=== PATIENT | female | born 1955 | race Caucasian/White ===

== ENCOUNTER 2018-01-05 10:40 | Day surgery (SDC) | payer BC, OTHER ==
[2018-01-05] MEDS: NS 1,000 ML IV (11:22)
[2018-01-05] MEDS ORDERED: PROPOFOL 200 MG/20 ML VIAL As Ordered ×3 (12:18→12:41)
== END 2018-01-05 13:33 | disposition home or self-care (01) ==
LOC: M OPP 10:40
DX: K52.9 Noninfective gastroenteritis and colitis, unspecified (principal); D12.5 Benign neoplasm of sigmoid colon; K63.89 Other specified diseases of intestine; Q43.8 Other specified congenital malformations of intestine; K64.8 Other hemorrhoids; K28.0 Acute gastrojejunal ulcer with hemorrhage; K85.90 Acute pancreatitis without necrosis or infection, unspecified; K31.89 Other diseases of stomach and duodenum; Z98.0 Intestinal bypass and anastomosis status; K21.9 Gastro-esophageal reflux disease without esophagitis; R06.83 Snoring; Z86.79 Personal history of other diseases of the circulatory system; Z86.39 Personal history of other endocrine, nutritional and metabolic disease; Z98.84 Bariatric surgery status; Z88.8 Allergy status to other drugs, medicaments and biological substances; Z79.899 Other long term (current) drug therapy
CPT/HCPCS: 45380

== ENCOUNTER → 2018-05-01 | Outpatient (CLI) | payer BC, OTHER ==
[2018-05-01 14:12] LABS: APPEARANCE, URINE CLEAR (CLEAR); BACTERIA, URINE AUTO NEGATIVE (NEGATIVE); BILIRUBIN, URINE AUTO NEGATIVE (NEGATIVE); BLOOD, URINE BLOOD NEGATIVE (NEGATIVE); COLOR, URINE YELLOW (YELLOW); GLUCOSE, URINE (UA) AUTO NEGATIVE (NEGATIVE); KETONE, URINE AUTO NEGATIVE (NEGATIVE); LEUKOCYTE ESTERASE, URINE AUTO NEGATIVE (NEGATIVE); MUCUS, URINE SMALL (NEGATIVE); NITRITE, URINE AUTO NEGATIVE (NEGATIVE); PROTEIN, URINE AUTO NEGATIVE (NEGATIVE); RBC, URINE AUTO 2 /HPF (0-3); SPECIFIC GRAVITY URINE AUTO 1.019 (1.002-1.035); SQUAMOUS EPITHELIAL CELL UR AU 0 /HPF (0-6); UROBILINOGEN, URINE AUTO 0.2 mg/dL (0.0-2.0); WBC, URINE AUTO 1 /HPF (0-3)
[2018-05-01 17:24] LABS: ANION GAP 7 MEQ/L (8-16); BLOOD UREA NITROGEN 11 MG/DL (7-18); CALCIUM LEVEL 9.4 MG/DL (8.8-10.2); CARBON DIOXIDE LEVEL 30 MEQ/L (21-32); CHLORIDE LEVEL 107 MEQ/L (98-107); CREATININE FOR GFR 0.58 MG/DL (0.55-1.30); GLOMERULAR FILTRATION RATE > 60.0 (>45); GLUCOSE, FASTING 105 MG/DL (70-100); POTASSIUM SERUM 4.5 MEQ/L (3.5-5.1); SODIUM LEVEL 144 MEQ/L (136-145)
== END ==
LOC: M SMT 11:36
DX: R31.0 Gross hematuria (principal); R82.998 Other abnormal findings in urine
CPT/HCPCS: 80048

== ENCOUNTER → 2018-06-25 | Outpatient (CLI) | payer BC, OTHER ==
[2018-06-25 13:25] LABS: ANION GAP 7 MEQ/L (8-16); BLOOD UREA NITROGEN 12 MG/DL (7-18); CALCIUM LEVEL 9.2 MG/DL (8.8-10.2); CARBON DIOXIDE LEVEL 30 MEQ/L (21-32); CHLORIDE LEVEL 103 MEQ/L (98-107); CREATININE FOR GFR 0.65 MG/DL (0.55-1.30); GLOMERULAR FILTRATION RATE > 60.0 (>45); GLUCOSE, FASTING 100 MG/DL (70-100); POTASSIUM SERUM 4.1 MEQ/L (3.5-5.1); SODIUM LEVEL 140 MEQ/L (136-145)
[2018-06-25 13:26] LABS: HEMATOCRIT 37.4 % (36.0-47.0); HEMOGLOBIN 12.5 g/dl (12.0-15.5); MEAN CORPUSCULAR HEMOGLOBIN 29.8 pg (27.0-33.0); MEAN CORPUSCULAR HGB CONC 33.4 g/dl (32.0-36.5); MEAN CORPUSCULAR VOLUME 89.3 fl (80.0-96.0); PLATELET COUNT, AUTOMATED 351 10^3/uL (150-450); RED BLOOD COUNT 4.19 10^6/uL (4.00-5.40); RED CELL DISTRIBUTION WIDTH 13.2 % (11.5-14.5); WHITE BLOOD COUNT 5.4 10^3/uL (4.0-10.0)
[2018-06-25 13:38] LABS: INR 0.94; PROTHROMBIN TIME 12.6 SECONDS (12.1-14.4)
[2018-06-25 13:39] LABS: PARTIAL THROMBOPLASTIN TIME 29.9 SECONDS (25.4-37.6)
== END ==
LOC: M SMT 09:21
DX: N20.0 Calculus of kidney (principal); Z01.818 Encounter for other preprocedural examination; N39.0 Urinary tract infection, site not specified
CPT/HCPCS: 80048

== ENCOUNTER 2018-07-03 13:20 | Day surgery (SDC) | payer BC, OTHER ==
[~2018-07-03 13:20] MED LIST: LIDOCAINE 2% INJ 100 MG/5 ML SDV (FOR ANES.) As Ordered; PROPOFOL 200 MG/20 ML VIAL As Ordered
[2018-07-03] MEDS: NS 1,000 ML IV (14:05)
== END 2018-07-03 15:07 | disposition home or self-care (01) ==
LOC: M OPP 15:07
DX: K28.4 Chronic or unspecified gastrojejunal ulcer with hemorrhage (principal); Z98.84 Bariatric surgery status
CPT/HCPCS: 43235

== ENCOUNTER 2018-07-06 11:28 | Day surgery (SDC) | payer BC, OTHER ==
[~2018-07-06 11:28] MED LIST changes: +LIDOCAINE 1% MDV 20ML VIAL SQ; -LIDOCAINE 2% INJ 100 MG/5 ML SDV (FOR ANES.) As Ordered; -PROPOFOL 200 MG/20 ML VIAL As Ordered
[2018-07-06] MEDS: LR 1,000 ML IV (12:13)
[2018-07-06] MEDS ORDERED: LIDOCAINE 2% INJ 100 MG/5 ML SDV (FOR ANES.) As Ordered (12:41)
[2018-07-06] MEDS ORDERED: PROPOFOL 200 MG/20 ML VIAL As Ordered (12:41)
[2018-07-06] MEDS ORDERED: ONDANSETRON 4MG/2ML VIAL (J2405) As Ordered (12:41)
[2018-07-06] MEDS ORDERED: fentaNYL 100 MCG/2 ML INJECTION (J3010) As Ordered (12:42)
[2018-07-06] MEDS ORDERED: MIDAZOLAM INJ 2 MG/2 ML VIAL (J2250) As Ordered (12:42)
[2018-07-06] MEDS: CONRAY-60 60% 50ML VIAL (Q9961) As Ordered (13:25)
[2018-07-06] MEDS ORDERED: LR 1,000 ML IV (15:15)
[2018-07-06] MEDS ORDERED: PERCOCET 5MG/325MG TAB PO ×2 (15:15)
[2018-07-06] MEDS ORDERED: fentaNYL 100 MCG/2 ML INJECTION (J3010) IV (15:15)
[2018-07-06] MEDS: ONDANSETRON 4MG/2ML VIAL (J2405) IV (15:40)
[2018-07-06] MEDS: PERCOCET 5MG/325MG TAB PO ×2 (15:45→16:14)
[2018-07-06] MEDS: oxyBUTYnin 5 MG TAB PO (17:28)
== END 2018-07-06 18:10 | disposition home or self-care (01) ==
LOC: M SDC 11:28
DX: N20.0 Calculus of kidney (principal); E11.9 Type 2 diabetes mellitus without complications; Z79.899 Other long term (current) drug therapy; I10 Essential (primary) hypertension; E78.5 Hyperlipidemia, unspecified; Z98.84 Bariatric surgery status; K21.9 Gastro-esophageal reflux disease without esophagitis
CPT/HCPCS: 52356

== ENCOUNTER → 2018-08-07 | Outpatient (CLI) | payer BC, OTHER ==
[~2018-08-07] MED LIST changes: +BIOT10008 PO; +CALC1TAB49 PO; -LIDOCAINE 1% MDV 20ML VIAL SQ; +MULT1TAB10 PO; +OMEP40CA2 PO; +SUCR1TA PO; +VITA200016 PO; +VITA500T53 PO
--- NOTE | 2018-08-08 02:39 | REP ---
Clinical: Nephrolithiasis. Technique: Single supine view of the abdomen and pelvis. Findings: Left ureteral stent in seemingly satisfactory position. Evaluation for urinary tract calcifications is limited due to technique and overlying bowel gas. No obvious nephroureterolithiasis identified. Fecal stasis. No bowel obstruction. No organomegaly. Skeletal structures demonstrate age-related changes. Impression: Left ureteral stent. No obvious urinary tract calcifications identified. Electronically Signed by John Hernandez MD 08/08/2018 02:31 A
== END ==
LOC: M SMT 15:21
PROVIDERS: ATTEND Urology
DX: Z96.0 Presence of urogenital implants (principal)

== ENCOUNTER → 2019-01-28 | Outpatient (REF) | payer OTHER ==
[~2019-01-28] MED LIST changes: +VITA500T17 PO; -VITA500T53 PO
[2019-01-28 13:37] LABS: APPEARANCE, URINE HAZY (CLEAR); BACTERIA, URINE AUTO 2+ (NEGATIVE); BILIRUBIN, URINE AUTO NEGATIVE (NEGATIVE); BLOOD, URINE BLOOD NEGATIVE (NEGATIVE); COLOR, URINE YELLOW (YELLOW); GLUCOSE, URINE (UA) AUTO NEGATIVE (NEGATIVE); KETONE, URINE AUTO NEGATIVE (NEGATIVE); LEUKOCYTE ESTERASE, URINE AUTO TRACE (NEGATIVE); MUCUS, URINE SMALL (NEGATIVE); NITRITE, URINE AUTO POSITIVE (NEGATIVE); PROTEIN, URINE AUTO NEGATIVE (NEGATIVE); RBC, URINE AUTO 0 /HPF (0-3); SPECIFIC GRAVITY URINE AUTO 1.014 (1.002-1.035); SQUAMOUS EPITHELIAL CELL UR AU 0 /HPF (0-6); UROBILINOGEN, URINE AUTO 0.2 mg/dL (0.0-2.0); WBC, URINE AUTO 9 /HPF (0-3)
== END ==
LOC: M SMT 12:50
PROVIDERS: ATTEND Urology
DX: R82.90 Unspecified abnormal findings in urine (principal)

== ENCOUNTER 2019-04-17 14:41 | Emergency (ER) | payer BC, OTHER ==
[~2019-04-17] VITALS: Ht 162.6 cm; Wt 84.1 kg
[2019-04-17] MEDS ORDERED: TAMS1CAP17 (14:57)
[2019-04-17] MEDS ORDERED: OXYC1TAB23 (14:57)
[2019-04-17] MEDS ORDERED: ONDA8TAB7 (14:57)
[2019-04-17] MEDS ORDERED: METOCLOPRAMIDE INJ 10MG/2ML VIAL (J2765) IV ONE (15:30)
[2019-04-17 15:43] LABS: BASO % 0.2 % (0.0-1.0); HEMATOCRIT 37.5 % (36.0-47.0); HEMOGLOBIN 12.5 g/dl (12.0-15.5); LYMPH # 0.7 10^3/uL (1.5-5.0); LYMPH % 5.3 % (24.0-44.0); MEAN CORPUSCULAR HGB CONC 33.3 g/dl (32.0-36.5); MONO # 0.3 10^3/uL (0.0-0.8); MONO % 2.6 % (0.0-5.0); NEUTROPHILS # 11.3 10^3/uL (1.5-8.5); NEUTROPHILS % 91.5 % (36.0-66.0); PLATELET COUNT, AUTOMATED 328 10^3/uL (150-450); RED BLOOD COUNT 4.31 10^6/uL (4.00-5.40); WHITE BLOOD COUNT 12.4 10^3/uL (4.0-10.0)
[2019-04-17 16:09] LABS: ALBUMIN 3.8 GM/DL (3.2-5.2); ALT/SGPT 32 U/L (12-78); BILIRUBIN,DIRECT 0.2 MG/DL (0.0-0.2); BILIRUBIN,TOTAL 0.4 MG/DL (0.2-1.0); BLOOD UREA NITROGEN 14 MG/DL (7-18); CALCIUM LEVEL 9.3 MG/DL (8.8-10.2); CARBON DIOXIDE LEVEL 28 MEQ/L (21-32); CHLORIDE LEVEL 104 MEQ/L (98-107); CREATININE FOR GFR 0.88 MG/DL (0.55-1.30); GLOMERULAR FILTRATION RATE > 60.0 (>45); GLUCOSE, FASTING 190 MG/DL (70-100); LIPASE 86 U/L (73-393); POTASSIUM SERUM 4.2 MEQ/L (3.5-5.1); SODIUM LEVEL 138 MEQ/L (136-145); TOTAL PROTEIN 7.3 GM/DL (6.4-8.2)
[2019-04-17] MEDS ORDERED: KETOROLAC 30 MG/ML VIAL (J1885) IV ONE (16:15)
--- NOTE | 2019-04-17 16:42 | REP ---
CT ABDOMEN AND PELVIS WITHOUT CONTRAST: CT abdomen and pelvis was performed without oral of IV contrast. Sagittal and coronal reconstruction images are performed. Comparison is made with prior study of 05/09/2018. The visualized lung bases demonstrate no infiltrate. There is a small hiatal hernia. There is evidence of prior gastric bypass surgery. No free air or free fluid is seen. There is evidence of prior cholecystectomy. The liver is grossly unremarkable. The spleen, adrenals and pancreas are grossly unremarkable. There is moderate right hydronephrosis with perinephric stranding. This is caused by a 5 mm calculus in the proximal right ureter. A few punctate calculi are seen in the left renal collecting system. There is a punctate calculus at the left ureteral pelvic junction causing mild left hydronephrosis. There is atherosclerotic calcification of the abdominal aorta without aneurysm. I see no adenopathy. There is no bowel wall thickening. I see no pelvic mass. Urinary bladder is minimally distended and grossly unremarkable. IMPRESSION: Moderate right hydronephrosis is caused by a 5 mm calculus in the proximal right ureter. Punctate calculus a the left ureteropelvic junction causes mild left hydronephrosis. Electronically Signed by Bro Melo MD 04/18/2019 04:59 P
[2019-04-17 18:14] VITALS: BP 128/67
== END 2019-04-17 18:26 | disposition home or self-care (01) ==
LOC: M ED 14:41
DX: N13.30 Unspecified hydronephrosis (principal); N20.0 Calculus of kidney; N23 Unspecified renal colic; E11.9 Type 2 diabetes mellitus without complications; K27.9 Peptic ulcer, site unspecified, unspecified as acute or chronic, without hemorrhage or perforation; K21.9 Gastro-esophageal reflux disease without esophagitis; Z98.84 Bariatric surgery status; Z88.8 Allergy status to other drugs, medicaments and biological substances; Z79.899 Other long term (current) drug therapy
CPT/HCPCS: 74176; 80048; 80076; 81001; 83690; 85025; 96374; 96375; 99284; J1885; J2765

== ENCOUNTER → 2019-04-25 | Outpatient (CLI) | payer BC, OTHER ==
[~2019-04-25] MED LIST changes: +ONDA8TAB7; +OXYC1TAB23; +TAMS1CAP17
--- NOTE | 2019-04-25 12:15 | REP ---
Supine abdomen single AP view: Comparison is 08/07/2018. The previous left ureteral stent has been removed. There are no calcifications projected over the kidneys, ureters or urinary bladder. There are no calcifications otherwise. The bowel gas pattern is normal. Skeletal structures are unremarkable. Impression: No calcifications are identified. The left ureteral stent has been removed. Electronically Signed by Bro Mendes MD 04/25/2019 12:07 P
[2019-04-25 14:04] LABS: APPEARANCE, URINE CLEAR (CLEAR); BACTERIA, URINE AUTO NEGATIVE (NEGATIVE); BILIRUBIN, URINE AUTO NEGATIVE (NEGATIVE); BLOOD, URINE BLOOD NEGATIVE (NEGATIVE); COLOR, URINE YELLOW (YELLOW); GLUCOSE, URINE (UA) AUTO 2+ mg/dL (NEGATIVE); KETONE, URINE AUTO NEGATIVE (NEGATIVE); LEUKOCYTE ESTERASE, URINE AUTO NEGATIVE (NEGATIVE); MUCUS, URINE SMALL (NEGATIVE); NITRITE, URINE AUTO NEGATIVE (NEGATIVE); PROTEIN, URINE AUTO NEGATIVE (NEGATIVE); RBC, URINE AUTO 0 /HPF (0-3); SPECIFIC GRAVITY URINE AUTO 1.004 (1.002-1.035); SQUAMOUS EPITHELIAL CELL UR AU 0 /HPF (0-6); UROBILINOGEN, URINE AUTO 0.2 mg/dL (0.0-2.0); WBC, URINE AUTO 0 /HPF (0-3)
== END ==
LOC: M SMT 10:13
PROVIDERS: ATTEND Nurse Practitioner Family
DX: N20.0 Calculus of kidney (principal)

== ENCOUNTER → 2019-05-09 | Outpatient (REF) | payer BC, OTHER ==
[2019-05-09 13:35] LABS: APPEARANCE, URINE HAZY (CLEAR); BACTERIA, URINE AUTO 1+ (NEGATIVE); BILIRUBIN, URINE AUTO NEGATIVE (NEGATIVE); BLOOD, URINE BLOOD NEGATIVE (NEGATIVE); COLOR, URINE YELLOW (YELLOW); GLUCOSE, URINE (UA) AUTO NEGATIVE (NEGATIVE); KETONE, URINE AUTO NEGATIVE (NEGATIVE); LEUKOCYTE ESTERASE, URINE AUTO 2+ (NEGATIVE); NITRITE, URINE AUTO NEGATIVE (NEGATIVE); PROTEIN, URINE AUTO NEGATIVE (NEGATIVE); RBC, URINE AUTO 2 /HPF (0-3); SPECIFIC GRAVITY URINE AUTO 1.005 (1.002-1.035); SQUAMOUS EPITHELIAL CELL UR AU 0 /HPF (0-6); UROBILINOGEN, URINE AUTO 0.2 mg/dL (0.0-2.0); WBC, URINE AUTO 33 /HPF (0-3)
== END ==
LOC: M SMT 13:09
PROVIDERS: ATTEND Nurse Practitioner Family
DX: N20.0 Calculus of kidney (principal)

== ENCOUNTER → 2019-07-25 | Outpatient (REF) | payer OTHER ==
[~2019-07-25] MED LIST changes: -OMEP40CA2 PO; +OMEP40CA97 PO
[2019-07-25 14:37] LABS: APPEARANCE, URINE CLEAR (CLEAR); BACTERIA, URINE AUTO NEGATIVE (NEGATIVE); BILIRUBIN, URINE AUTO NEGATIVE (NEGATIVE); BLOOD, URINE BLOOD 1+ (NEGATIVE); COLOR, URINE YELLOW (YELLOW); GLUCOSE, URINE (UA) AUTO NEGATIVE (NEGATIVE); KETONE, URINE AUTO NEGATIVE (NEGATIVE); LEUKOCYTE ESTERASE, URINE AUTO NEGATIVE (NEGATIVE); MUCUS, URINE SMALL (NEGATIVE); NITRITE, URINE AUTO NEGATIVE (NEGATIVE); PROTEIN, URINE AUTO NEGATIVE (NEGATIVE); RBC, URINE AUTO 3 /HPF (0-3); SPECIFIC GRAVITY URINE AUTO 1.011 (1.002-1.035); SQUAMOUS EPITHELIAL CELL UR AU 0 /HPF (0-6); UROBILINOGEN, URINE AUTO 0.2 mg/dL (0.0-2.0); WBC, URINE AUTO 1 /HPF (0-3)
== END ==
LOC: M SMT 14:11
PROVIDERS: ATTEND Nurse Practitioner Family
DX: R31.0 Gross hematuria (principal)

== ENCOUNTER 2020-01-12 01:05 | Inpatient (IN) | payer BC, OTHER ==
[~2020-01-12] VITALS: Ht 162.6 cm; Wt 81.8 kg
[~2020-01-12 01:05] MED LIST changes: +ONDA8TAB10; -ONDA8TAB7
[2020-01-12 02:11] LABS: BASO % 0.2 % (0.0-1.0); EOS % 0.1 % (0.0-3.0); HEMATOCRIT 34.9 % (36.0-47.0); HEMOGLOBIN 11.3 g/dl (12.0-15.5); LYMPH # 0.8 10^3/uL (1.5-5.0); LYMPH % 5.4 % (24.0-44.0); MEAN CORPUSCULAR HEMOGLOBIN 28.9 pg (27.0-33.0); MEAN CORPUSCULAR HGB CONC 32.4 g/dl (32.0-36.5); MEAN CORPUSCULAR VOLUME 89.3 fl (80.0-96.0); MONO # 0.9 10^3/uL (0.0-0.8); MONO % 5.7 % (0.0-5.0); NEUTROPHILS # 13.5 10^3/uL (1.5-8.5); NEUTROPHILS % 88.2 % (36.0-66.0); PLATELET COUNT, AUTOMATED 317 10^3/uL (150-450); RED BLOOD COUNT 3.91 10^6/uL (4.00-5.40); WHITE BLOOD COUNT 15.3 10^3/uL (4.0-10.0)
[2020-01-12 03:06] LABS: ALBUMIN 3.6 GM/DL (3.2-5.2); BILIRUBIN,DIRECT 0.2 MG/DL (0.0-0.2); BILIRUBIN,TOTAL 0.5 MG/DL (0.2-1.0)
[2020-01-12] MEDS ORDERED: MORPHINE 4 MG/ML 1ML VIAL/SYRINGE (J2270) IV ONE (03:15)
[2020-01-12] MEDS ORDERED: cefTRIAXone SOD 1 GM in D5W MINI-BAG PLUS 50 ML IV ONE (03:15)
[2020-01-12] MEDS ORDERED: NS 1,000 ML IV ONE (03:15)
--- NOTE | 2020-01-12 03:58 | REPVR ---
PROCEDURE INFORMATION: Exam: CT Abdomen and Pelvis without Contrast Exam date and time: 01/12/20 (3:23am) Age: 64 years old Clinical indication: Generalized abdominal pain. Colic. TECHNIQUE: Imaging protocol: Computed tomography of the abdomen and pelvis without contrast. Radiation optimization: All CT scans at this facility use at least one of these dose optimization techniques: automated exposure control; mA and/or kV adjustment per patient size (includes targeted exams where dose is matched to clinical indication); or iterative reconstruction. COMPARISON: CT ABDOMEN PELVIS of 04/17/19 FINDINGS: Liver: Normal. No solid mass. Gallbladder and bile ducts: Previous cholecystectomy. No ductal dilatation. Pancreas: Normal. No ductal dilatation. Spleen: Normal. No splenomegaly. Adrenals: Normal. No mass. Kidneys and ureters: Marked left hydronephrosis. Obstructing irregular stone (3 mm size) at or just below the left UP junction. The left kidney is enlarged and edematous, with perinephric inflammatory stranding. 1 or 2 small non-obstructing calyceal stones in each kidney. Stomach and bowel: Previous stomach surgery. No bowel obstruction. No mucosal thickening. Appendix: No evidence of appendicitis. Intraperitoneal space: Unremarkable. No free air. No significant fluid collection. Vasculature: Unremarkable. No abdominal aortic aneurysm. Lymph nodes: Unremarkable. No enlarged lymph nodes. Bladder: Unremarkable as visualized. Reproductive: Unremarkable as visualized. Bones/joints: Unremarkable. No acute fracture. Soft tissues: Unremarkable. IMPRESSION: Marked left hydronephrosis. Obstructing irregular stone (3 mm size) at or just below the left UP junction. 1 or 2 small non-obstructing calyceal stones in each kidney. Previous stomach surgery. Previous cholecystectomy. Electronically signed by: Kaila Del Angel On 01/12/2020 03:57:45 AM
[2020-01-12] MEDS ORDERED: METF500T13 PO (05:03)
[2020-01-12] MEDS ORDERED: BIOT10009 PO (05:03)
[2020-01-12] MEDS ORDERED: THERTAB18 PO (05:03)
[2020-01-12] MEDS ORDERED: VITAD1000T PO (05:03)
[2020-01-12] MEDS ORDERED: GLUCAGON INJ 1MG VIAL SC PRN (05:15)
[2020-01-12] MEDS ORDERED: DEXTROSE 50% 50 ML SYRINGE IV PRN (05:15)
[2020-01-12] MEDS ORDERED: GLUCOSE 4GM CHEW TABLET PO PRN (05:15)
[2020-01-12] MEDS: NS 1,000 ML IV SCH ×2 (05:15→13:03)
--- NOTE | 2020-01-12 05:28 | HPEPDOC ---
[facility] Medical History & Physical Date of Admission Jan 12, 2020 Date of Service: Jan 12, 2020 Attending Physician: SHAY HESS MD History and Physical CHIEF COMPLAINT: Flank pain HISTORY OF PRESENT ILLNESS: 64-year-old female with past medical history diabetes mellitus and recurrent nephrolithiasis presents with left flank pain. Pain started 2 days ago, radiating around to the left lower quadrant, no associated fevers or nausea. She has no other complaints, presents to the ER, his pain was worsening. In the ER. She is found to have an obstructing calculi in the ureter with moderate hydronephrosis and significant perinephric stranding. She denies any shortness of breath, chest pain, nausea, vomiting or diarrhea. She does report a strong foul smell with urination. 10 point review of system is negative except for above PAST MEDICAL HISTORY: 1. Diabetes mellitus. PAST SURGICAL HISTORY: 1. Gastric bypass. 2. Hysterectomy. SOCIAL HISTORY: Previous smoker. Social alcohol use. Denies drug use FAMILY HISTORY: Positive for heart disease ALLERGIES: Please see below. HOME MEDICATIONS: Please see below. PHYSICAL EXAMINATION: VITAL SIGNS: Please see below. GENERAL: No distress HEENT: Normocephalic, atraumatic, moist mucous membranes NECK: Supple CARDIOVASCULAR EXAMINATION: S1, S2, no murmurs RESPIRATORY EXAMINATION: Clear to auscultation, no wheezing ABDOMINAL EXAMINATION: Soft, mild left lower quadrant tenderness, nondistended, positive bowel sounds EXTREMITIES: Range of motion intact SKIN: No rash NEUROLOGICAL EXAMINATION: Alert and oriented 3, no focal deficits PSYCHIATRIC EXAMINATION: Calm and cooperative LABORATORY DATA: See below. IMAGING: CT abdomen and pelvis showing obstructing calculi in the ureter with hydronephrosis MICROBIOLOGY: Please see below. ASSESSMENT: 64-year-old female with past medical history of diabetes mellitus and recurrent nephrolithiasis is being admitted for ureteral calculi with hydronephrosis and pyelonephritis. PLAN: 1. Hydronephrosis/pyelonephritis. Secondary to obstructing calculi, nothing by mouth, IV fluids, ceftriaxone, ED consulted urology for possible intervention. 2. Diabetes mellitus. Sliding scale insulin coverage every 6 hours. DVT prophylaxis: SCDs GI prophylaxis: Home PPI Vital Signs Vital Signs Date Time Temp Pulse Resp B/P (MAP) Pulse Ox O2 Delivery O2 Flow Rate FiO2 01/12/20 03:39 18 97 Room Air 01/12/20 02:19 01/12/20 01:05 98.9 108 Laboratory Data Labs 24H Laboratory Tests 2 01/12/20 01:16: Urine Color YELLOW, Urine Appearance CLOUDYH, Urine pH 5.0, Urine Specific [place] 1.020, Urine Protein 1+H, Urine Glucose (UA) NEGATIVE, Urine Ketones NEGATIVE, Urine Blood 1+H, Urine Nitrite NEGATIVE, Urine Bilirubin NEGATIVE, Urine Urobilinogen 0.2, Urine Leukocyte Esterase 3+H, Urine WBC (Auto) TNTCH, Urine RBC (Auto) 14H, Urine Hyaline Casts (Auto) 0, Urine Bacteria (Auto) NEGATIVE, Urine Squamous Epithelial Cells 0, Urine Mucus (Auto) SMALL, Urine Sperm (Auto) 01/12/20 02:06: Immature Granulocyte % (Auto) 0.4, Neutrophils (%) (Auto) 88.2H, Lymphocytes (%) (Auto) 5.4L, Monocytes (%) (Auto) 5.7H, Eosinophils (%) (Auto) 0.1, Basophils (%) (Auto) 0.2, Neutrophils # (Auto) 13.5H, Lymphocytes # (Auto) 0.8L, Monocytes # (Auto) 0.9H, Eosinophils # (Auto) 0.0, Basophils # (Auto) 0.0, Nucleated Red Blood Cells % (auto) 0.0, Total Bilirubin 0.5, Direct Bilirubin 0.2, Aspartate Amino Transf (AST/SGOT) 14, Alanine Aminotransferase (ALT/SGPT) 33, Alkaline Phosphatase 102, Total Protein 7.0, Albumin 3.6, Albumin/Globulin Ratio 1.1L, Lipase 112 01/12/20 02:14: POC Glucose (Misc Panel) 165H, POC Sodium (Misc Panel) 138, POC Potassium (Misc Panel) 3.8, POC Chloride (Misc Panel) 100, POC Total CO2 (Misc Panel) 23.0, POC Blood Urea Nitrogen (Misc Panel 17, POC Ionized Calcium (Misc Panel) 4.5, POC Creatinine (Misc Panel) 0.8, POC Hematocrit (Misc Panel) 36.0L CBC/BMP Laboratory Tests 01/12/20 02:06 Microbiology Microbiology 01/12/20 Urine Culture, Received Pending Home Medications Scheduled Biotin (Biotin) 1,000 Mcg Tab.chew, 1,000 MCG PO DAILY Calcium Citrate/Vitamin D3 (Calcium Cit 200-Vit D3 250 Tab) 1 Tab Tab, 1 TAB PO DAILY Cholecalciferol (Vitamin D3) (Vitamin D3) 1,000 Unit Tablet, 1,000 UNITS PO DAILY Cyanocobalamin (Vitamin B-12) (Vitamin B-12) 500 Mcg Tab, 500 MCG PO DAILY Metformin HCl (Metformin HCl) 500 Mg Tablet, 500 MG PO DAILY Multivitamin with Folic Acid (Thera Tablet) 400 Mcg Tablet, 1 TAB PO DAILY Omeprazole (Omeprazole) 40 Mg Cap, 40 MG PO QPM Allergies Coded Allergies: aspirin (Verified Adverse Reaction, Unknown, PT HAD GASTRIC BYPASS, 04/17/19) A-FIB/CHADSVASC A-FIB History Current/History of A-Fib/PAF?: No SHAY HESS MD Jan 12, 2020 05:28
[2020-01-12] MEDS ORDERED: ACETAMINOPHEN TAB 650MG DOSE (2X325MG) PO PRN (05:30)
[2020-01-12] MEDS ORDERED: MORPHINE 2 MG/ML 1ML VIAL (J2270) IV PRN (05:30)
[2020-01-12 06:00] VITALS: BP 143/82
[2020-01-12] MEDS: HumaLOG INSULIN (NovoLOG) PER UNIT SC SCH ×4 (06:00→17:38)
[2020-01-12] MEDS ORDERED: propofoL 200 MG/20 ML VIAL As Ordered ONE (09:32)
[2020-01-12] MEDS ORDERED: MIDAZOLAM INJ 2MG/2ML VIAL (J2250 PER 1MG) As Ordered ONE (09:32)
[2020-01-12] MEDS ORDERED: fentaNYL 100 MCG/2 ML INJECTION (J3010) As Ordered ONE (09:32)
[2020-01-12] MEDS ORDERED: ONDANSETRON 4MG/2ML VIAL As Ordered ONE (09:32)
[2020-01-12] MEDS ORDERED: LIDOCAINE 2% 100MG/5ML SDV (FOR ANES.) As Ordered ONE (09:32)
[2020-01-12] MEDS ORDERED: ISOVUE-300 61% 50ML VIAL As Ordered ONE (09:47)
[2020-01-12] MEDS ORDERED: LIDOCAINE 2% 5ML JELLY UROJET As Ordered ONE (10:21)
--- NOTE | 2020-01-12 10:29 | SMCUROLCON ---
Urology Consultation General Date of Consultation 01/12/20 Reason For Consultation This patient is seen for Hydronephrosis, Pyelonephritis, Ureterolithiasis. History of Present Illness This is a 64 y/o F w/ PMH significant for DM2 and kidney stones, presenting to the ER this morning w/ acute onset L flank pain. CT A/P done in the ER was notable for a 4mm obstructing stone in the L proximal ureter w/ moderate to severe hydro, renal edema, and perinephric stranding. She denies fevers or chills. She denies n/v. She denies dysuria. Her UA is notable for TNTC WBCs and she has a leukocytosis of 15,000. Past Medical History Medical History see HPI Surgical Hstory cholecystectomy, L rotator cuff repair, gastric bypass, hysterectomy Medications Current Medications Current Medications Medications (Trade) Dose Ordered Sig/Db Route PRN Reason Start Time Stop Time Status Last Admin Dose Admin Acetaminophen (Tylenol Tab) 650 mg Q6HP PRN PO pain/fever 01/12/20 05:30 Ceftriaxone Sodium 1 gm/ Dextrose 50 ml @ 100 mls/hr Q24H IV 01/13/20 04:00 Dextrose (Dextrose 50%) 25 ml ASDIRECTED PRN IV SEE LABEL COMMENTS 01/12/20 05:15 Glucagon (Glucagon) 1 mg ASDIRECTED PRN SC SEE LABEL COMMENTS 01/12/20 05:15 Glucose (Glucose) 16 GM ASDIRECTED PRN PO SEE LABEL COMMENTS 01/12/20 05:15 Home Med (Med Rec Complete!) ASDIRECTED XX 01/12/20 05:15 01/12/20 05:25 DC Insulin Human Lispro (HumaLOG INSULIN) SEE PROTOCOL TABLE Q6H SC 01/12/20 06:00 Morphine Sulfate (Morphine Sulfate Inj) 2 mg Q4HP PRN IV pain 8-10 01/12/20 05:30 Omeprazole (PriLOSEC) 40 mg QPM PO 01/12/20 21:00 Sodium Chloride 1,000 ml @ 100 mls/hr Q10H IV 01/12/20 05:15 01/12/20 05:15 Allergies Allergies: Coded Allergies: aspirin (Verified Adverse Reaction, Unknown, PT HAD GASTRIC BYPASS, 04/17/19) Review of Systems General: Denies: Fatigue, Malaise Constitutional: Denies: Fever, Chills, Sweats, Weakness, Malaise Pulmonary: Denies: Dyspnea, Cough Cardiovascular: Denies Chest Pain, Denies Palpitations Gastrointestinal: Denies: Nausea, Vomiting, Abdominal Pain Genitourinary: Denies: Dysuria, Frequency, Incontinence, Hematuria Musculoskeletal: Reports: Back Pain (L flank) Physical Examination General Exam: Alert, No Acute Distress Chest Exam: Normal air movement Abdomen Exam: Soft; No: Tenderness Skin Exam: Nl turgor and temperature Neuro Exam: Normal Speech Psych Exam: Mental status NL, Mood NL Vital Signs/I&O Vital Signs Date Time Temp Pulse Resp B/P (MAP) Pulse Ox O2 Delivery O2 Flow Rate FiO2 01/12/20 06:00 98.3 107 18 143/82 (102) 100 Room Air I&O- Last 24 Hours up to 6 AM 01/12/20 05:59 Intake Total 1050 ml Balance 1050 ml Laboratory Data 24H Labs Laboratory Tests 2 01/12/20 01:16: Urine Color YELLOW, Urine Appearance CLOUDYH, Urine pH 5.0, Urine Specific [place] 1.020, Urine Protein 1+H, Urine Glucose (UA) NEGATIVE, Urine Ketones NEGATIVE, Urine Blood 1+H, Urine Nitrite NEGATIVE, Urine Bilirubin NEGATIVE, Urine Urobilinogen 0.2, Urine Leukocyte Esterase 3+H, Urine WBC (Auto) TNTCH, Urine RBC (Auto) 14H, Urine Hyaline Casts (Auto) 0, Urine Bacteria (Auto) NEGATIVE, Urine Squamous Epithelial Cells 0, Urine Mucus (Auto) SMALL, Urine Sperm (Auto) 01/12/20 02:06: Immature Granulocyte % (Auto) 0.4, Neutrophils (%) (Auto) 88.2H, Lymphocytes (%) (Auto) 5.4L, Monocytes (%) (Auto) 5.7H, Eosinophils (%) (Auto) 0.1, Basophils (%) (Auto) 0.2, Neutrophils # (Auto) 13.5H, Lymphocytes # (Auto) 0.8L, Monocytes # (Auto) 0.9H, Eosinophils # (Auto) 0.0, Basophils # (Auto) 0.0, Nucleated Red Blood Cells % (auto) 0.0, Total Bilirubin 0.5, Direct Bilirubin 0.2, Aspartate Amino Transf (AST/SGOT) 14, Alanine Aminotransferase (ALT/SGPT) 33, Alkaline Phosphatase 102, Total Protein 7.0, Albumin 3.6, Albumin/Globulin Ratio 1.1L, Lipase 112 01/12/20 02:14: POC Glucose (Misc Panel) 165H, POC Sodium (Misc Panel) 138, POC Potassium (Misc Panel) 3.8, POC Chloride (Misc Panel) 100, POC Total CO2 (Misc Panel) 23.0, POC Blood Urea Nitrogen (Misc Panel 17, POC Ionized Calcium (Misc Panel) 4.5, POC Creatinine (Misc Panel) 0.8, POC Hematocrit (Misc Panel) 36.0L 01/12/20 05:29: Coronavirus (COVID-19)(PCR) NEGATIVE CBC/BMP Laboratory Tests 01/12/20 02:06 Microbiology Microbiology 01/12/20 Urine Culture, Received Pending Assessment This is a 64 y/o F presenting w/ a 4mm obstructing proximal L ureteral stone and likely pyelonephritis. I recommended that we take her to the OR this morning for cystoscopy and L ureteral stent placement. After a discussion of the risks and benefits, informed consent was signed. Plan - to OR now - NPO - 1g rocephin given in ED - f/u culture results - can have regular diet postop - patient to be monitored and treated for pyelonephritis by hospitalist service postop - will arrange f/u in my office in a week or so as patient will need to be brought back to the OR in a few wks to remove her stone once infection has resolved RAJENDRA CONTRERAS MD Jan 12, 2020 10:29
--- NOTE | 2020-01-12 11:06 | ROOPDOC ---
[facility] Report Of Operation Report of Operation DATE OF PROCEDURE: 01/12/20 PREPROCEDURE DIAGNOSIS: Obstructing left ureteral stone. POSTPROCEDURE DIAGNOSIS: Obstructing left ureteral stone. PROCEDURE: Cystoscopy, left ureteral stent placement, left retrograde pyelogram with intraoperative interpretation of images. SURGEON: Rajendra Contreras MD EXECUTOR OF ESTATE: None. ANESTHESIA: Monitored anesthesia care (MAC). OPERATIVE INDICATIONS: This is a 64-year-old female who presented to the emergency room with an obstructing 4mm proximal left ureteral stone and concern for left pyelonephritis. She is brought to the operating room for the above procedure. DESCRIPTION OF PROCEDURE: The patient was brought to the operating room and MAC anesthesia was administered. Broad spectrum antibiotics had already been infused in the Emergency Room. She was then placed in the dorsal lithotomy position and prepped and draped in the usual sterile fashion. A rigid cystoscope was then inserted in the urethral meatus and advanced into the bladder. A guidewire was advanced up the left collecting system. I then advanced a #5-Tamazight open-ended ureteral catheter over the wire into the left collecting system. The wire was removed and I then aspirated approximately 50mL of purulent urine from her left renal pelvis. I then shot a retrograde pyelogram and it was notable for moderate left hydronephrosis with no extravasation. I then advanced the wire back up the left collecting system and removed the ureteral catheter. I then utilized the wire to advance a #6-Tamazight x 22-32 cm JJ ureteral stent into the left collecting system. The wire was removed, and there were adequate curls of the stent in the left renal pelvis and in the bladder. I then placed an 18Fr Cody in the bladder and the balloon was filled with 10mL of sterile water. The catheter was connected to gravity drainage and this marked the conclusion of the procedure. The patient was taken out of the dorsal lithotomy position, awakened from anesthesia and transported to the recovery room in stable condition. Estimated blood loss: 5 mL. Complications: None. Specimens: Urine from left renal pelvis for culture. Plan: The patient will be treated for left pyelonephritis postop. I will ultima tely need to bring her back to the OR in a few weeks after her infection has cleared for a left ureteroscopy with laser lithotripsy to treat her stone. RAJENDRA CONTRERAS MD Jan 12, 2020 11:06
[2020-01-12] MEDS ORDERED: ONDANSETRON 4MG/2ML VIAL IV PRN (11:15)
[2020-01-12] MEDS ORDERED: oxyCODONE 5MG TAB PO PRN (11:15)
[2020-01-12] MEDS ORDERED: LR 1,000 ML IV SCH (11:15)
[2020-01-12] MEDS ORDERED: fentaNYL 100 MCG/2 ML INJECTION (J3010) IV PRN (11:15)
[2020-01-12 11:30] VITALS: BP 122/70
[2020-01-12 12:00] VITALS: BP 122/70
[2020-01-12 13:00] VITALS: BP 120/71
[2020-01-12] MEDS: VITAMIN D 1,000 INTERNATIONAL UNITS TABLET PO SCH (13:03)
[2020-01-12] MEDS: CYANOCOBALAMIN 500 MCG TAB PO SCH (13:03)
--- NOTE | 2020-01-12 13:55 | IPNPDOC ---
Text Note Date of Service The patient was seen on 01/12/20. NOTE Subjective: -Pain well controlled at this time, post stent placement Objective PHYSICAL EXAMINATION: VITAL SIGNS: Please see below. GENERAL: No distress HEENT: NCAT, EOMI, PERRLA NECK: Supple CARDIOVASCULAR EXAMINATION: RRR, S1, S2, no murmurs RESPIRATORY EXAMINATION: Clear to auscultation, no wheezing ABDOMINAL EXAMINATION: Normoactive bowel sounds, mildly tender L side, no distention, rebound or guarding. EXTREMITIES: WWP, no LE edema, 5/5 Range of motion throughout SKIN: No rash NEUROLOGICAL EXAMINATION: Alert and oriented 3, no focal deficits PSYCHIATRIC EXAMINATION: AOx3 LABORATORY DATA: Reviewed. See below. WBC 15.3 IMAGING: CT abdomen and pelvis showing obstructing calculi in the ureter with hydronephrosis MICROBIOLOGY: Please see below. ASSESSMENT: 64-year-old W with NIDDM and recurrent nephrolithiasis admitted for obstructing left ureteral calculi with hydronephrosis and pyelonephritis now s/p ureteral stent placement. PLAN: 1.Pyelonephritis w/ hydronephrosis Secondary to obstructing calculi s/p stent placement -consistent carb diet postop -IV fluids -continue ceftriaxone, pending UCx -Dr. Golden was consulted by the ED, s/p ureteral stent placement this AM, with poole to be dc'd tomorrow, will f/u w/ urology as an outpatient 2. Diabetes mellitus. Hold home metformin, SSI, hypoglycemia protocol, FSBG ACHS DVT prophylaxis: SCDs GI prophylaxis: Home PPI VS,Fishbone, I+O VS, Fishbone, I+O Laboratory Tests 01/12/20 02:06 Vital Signs Date Time Temp Pulse Resp B/P (MAP) Pulse Ox O2 Delivery O2 Flow Rate FiO2 01/12/20 12:00 97.7 85 16 122/70 (87) 99 Room Air I&O- Last 24 Hours up to 6 AM 01/12/20 06:00 Intake Total 1050 ml Output Total 0 ml Balance 1050 ml CHAD CONNELL MD Jan 12, 2020 12:19
[2020-01-12 16:00] VITALS: BP 120/72
[2020-01-12] MEDS ORDERED: HumaLOG INSULIN (NovoLOG) PER UNIT SC SCH (21:00)
[2020-01-12] MEDS ORDERED: OMEPRAZOLE 20 MG CAP PO SCH (21:00)
[2020-01-12 22:00] VITALS: BP 120/72
[2020-01-13 02:00] VITALS: BP 119/72
[2020-01-13] MEDS ORDERED: cefTRIAXone SOD 1 GM in D5W MINI-BAG PLUS 50 ML IV SCH (04:00)
[2020-01-13] MEDS: NS 1,000 ML IV SCH ×2 (04:19→11:15)
[2020-01-13 06:00] VITALS: BP 120/74
--- NOTE | 2020-01-13 07:02 | REP ---
Clinical: Hydronephrosis. Stent placement. Technique: Two intraoperative fluoroscopic images obtained. Findings: Mild left-sided hydronephrosis is appreciated along with satisfactory left ureteral stent placement. Total fluoroscopic time 11 seconds. Impression: Satisfactory left ureteral stent placement. Electronically Signed by John Hernandez MD 01/13/2020 06:52 A
[2020-01-13] MEDS ORDERED: ACET1TAB55 PO (08:34)
[2020-01-13] MEDS ORDERED: OXYC1TAB23 PO (08:34)
[2020-01-13] MEDS ORDERED: CEPH500C PO (08:36)
[2020-01-13] MEDS: HumaLOG INSULIN (NovoLOG) PER UNIT SC SCH (08:41)
[2020-01-13] MEDS: VITAMIN D 1,000 INTERNATIONAL UNITS TABLET PO SCH (08:41)
[2020-01-13] MEDS: CYANOCOBALAMIN 500 MCG TAB PO SCH (08:41)
[2020-01-13] MEDS ORDERED: CEPHALEXIN 500 MG CAP PO SCH (09:00)
[2020-01-13 10:52] LABS: HEMATOCRIT 33.7 % (36.0-47.0); MEAN CORPUSCULAR HEMOGLOBIN 29.6 pg (27.0-33.0); MEAN CORPUSCULAR HGB CONC 32.6 g/dl (32.0-36.5); MEAN CORPUSCULAR VOLUME 90.6 fl (80.0-96.0); PLATELET COUNT, AUTOMATED 292 10^3/uL (150-450); RED BLOOD COUNT 3.72 10^6/uL (4.00-5.40); WHITE BLOOD COUNT 8.3 10^3/uL (4.0-10.0)
[2020-01-13 11:48] LABS: BLOOD UREA NITROGEN 8 MG/DL (7-18); CALCIUM LEVEL 8.6 MG/DL (8.8-10.2); CARBON DIOXIDE LEVEL 27 MEQ/L (21-32); CHLORIDE LEVEL 107 MEQ/L (98-107); CREATININE FOR GFR 0.72 MG/DL (0.55-1.30); GLOMERULAR FILTRATION RATE > 60.0 (>45); GLUCOSE, FASTING 202 MG/DL (70-100); POTASSIUM SERUM 3.7 MEQ/L (3.5-5.1); SODIUM LEVEL 142 MEQ/L (136-145)
--- NOTE | 2020-01-13 19:18 | DS.PDOC ---
Discharge Summary General Date of Admission Jan 12, 2020 at 05:05 Date of Discharge 01/13/2020 Attending Physician: CHAD CONNELL MD Discharge Summary PROCEDURES PERFORMED DURING STAY: Cystoscopy with stent placement 01/12/2020 ADMITTING DIAGNOSES: 1. Pyelonephritis and ureterolithiasis DISCHARGE DIAGNOSES: 1. . COMPLICATIONS/CHIEF COMPLAINT: Hydronephrosis, Pyelonephritis, Ureterolithiasis. HISTORY OF PRESENT ILLNESS: 64 y/o W w DM2 and history of kidney stones, who presented to the ED with acute onset L flank pain. HOSPITAL COURSE: Work up revealed a leukocytosis to 15 and UA c/w a UTI while CT A/P was notable for a 4mm obstructing stone in the L proximal ureter w/ moderate to severe hydro with perinephric stranding. She had cystoscopy on 01/12/2020 with stent placement, was started on ceftriaxone for pyelonephritis that was switched to keflex post op and her pain was well controlled on percocet PRN. She is now being discharged home to complete a 10d course of keflex with urology and PCP follow up. DISCHARGE MEDICATIONS: Please see below. ALLERGIES: Please see below. PHYSICAL EXAMINATION ON DISCHARGE: VITAL SIGNS: Please see below. GENERAL: No distress HEENT: NCAT, EOMI, PERRLA NECK: Supple CARDIOVASCULAR EXAMINATION: RRR, S1, S2, no murmurs RESPIRATORY EXAMINATION: Clear to auscultation, no wheezing ABDOMINAL EXAMINATION: Normoactive bowel sounds, non tender abdomen, mild L flank pain, no distention, rebound or guarding. EXTREMITIES: WWP, no LE edema, 5/5 Range of motion throughout SKIN: No rash NEUROLOGICAL EXAMINATION: Alert and oriented 3, no focal deficits PSYCHIATRIC EXAMINATION: AOx3 IMAGING: CT abdomen and pelvis showing obstructing calculi in the ureter with hydronephrosis PROGNOSIS: Good ACTIVITY: As tolerated DIET: Consistent carb DISCHARGE PLAN: home with antibiotic course for pyelonephritis with urology follow up DISPOSITION: 01 Home, Self-Care. DISCHARGE INSTRUCTIONS: 1. home with antibiotic course for pyelonephritis with urology and PCP follow up ITEMS TO FOLLOWUP ON ON OUTPATIENT: 1. Kidney stone 2. Pyelonephritis DISCHARGE CONDITION: Stable TIME SPENT ON DISCHARGE: 45 minutes. Vital Signs/I&Os Vital Signs Date Time Temp Pulse Resp B/P (MAP) Pulse Ox O2 Delivery O2 Flow Rate FiO2 01/13/20 06:00 98.6 88 18 120/74 (89) 92 Room Air I&O- Last 24 Hours up to 6 AM 01/13/20 06:00 Intake Total 1780 ml Output Total 3100 ml Balance -1320 ml Laboratory Data Labs 24H Laboratory Tests 2 01/12/20 20:56: Bedside Glucose (Misc Panel) 169H 01/13/20 05:57: Bedside Glucose (Misc Panel) 157H 01/13/20 08:58: Nucleated Red Blood Cells % (auto) 0.0, Anion Gap 8, Glomerular Filtration Rate > 60.0, Calcium Level 8.6L CBC/BMP Laboratory Tests 01/13/20 08:58 FSBS Laboratory Tests Test 01/12/20 20:56 01/13/20 05:57 Range/Units Bedside Glucose (Misc Panel) 169 157 80-115 MG/DL Microbiology Microbiology 01/12/20 Urine Culture, Received Pending 01/12/20 Urine Culture, Received Pending Discharge Medications Scheduled Biotin (Biotin) 1,000 Mcg Tab.chew, 1,000 MCG PO DAILY, (Reported) Calcium Citrate/Vitamin D3 (Calcium Cit 200-Vit D3 250 Tab) 1 Tab Tab, 1 TAB PO DAILY, (Reported) Cephalexin (Cephalexin) 500 Mg Capsule, 500 MG PO QID Cholecalciferol (Vitamin D3) (Vitamin D3) 1,000 Unit Tablet, 1,000 UNITS PO DAILY, (Reported) Cyanocobalamin (Vitamin B-12) (Vitamin B-12) 500 Mcg Tab, 500 MCG PO DAILY, (Reported) Metformin HCl (Metformin HCl) 500 Mg Tablet, 500 MG PO DAILY, (Reported) Multivitamin with Folic Acid (Thera Tablet) 400 Mcg Tablet, 1 TAB PO DAILY, (Reported) Omeprazole (Omeprazole) 40 Mg Cap, 40 MG PO QPM, (Reported) Scheduled PRN Acetaminophen (Acetaminophen) 325 Mg Tablet, 650 MG PO Q6HP PRN for pain/fever Oxycodone HCl/Acetaminophen (Oxycodone-Acetaminophen 5-325) 1 Each Tablet, 1 TAB PO TIDP PRN for pain Allergies Coded Allergies: aspirin (Verified Adverse Reaction, Unknown, PT HAD GASTRIC BYPASS, 04/17/19) CHAD CONNELL MD Jan 13, 2020 19:18
== END 2020-01-13 12:00 | disposition home or self-care (01) | DRG 465 ==
LOC: M ED 01:05 → M ED INP 05:05 → ENRESERV 05:13 → M MS5PR 06:04
PROVIDERS: ADMIT Internal Medicine; ATTEND Internal Medicine
PROC: 0T778DZ Dilation of Left Ureter with Intraluminal Device, Via Natural or Artificial Opening Endoscopic (ICD-10-PCS; principal; 2020-01-12 10:00)
DX: N13.2 Hydronephrosis with renal and ureteral calculous obstruction (principal); I10 Essential (primary) hypertension; E11.9 Type 2 diabetes mellitus without complications; D72.829 Elevated white blood cell count, unspecified; Z88.6 Allergy status to analgesic agent; Z79.899 Other long term (current) drug therapy; Z87.891 Personal history of nicotine dependence

== ENCOUNTER → 2020-02-06 | Outpatient (CLI) | payer BC, OTHER ==
[~2020-02-06] MED LIST changes: +ACET1TAB55 PO; +BIOT10009 PO; +CEPH500C PO; +D31000TA2 PO; +METF500T13 PO; +OXYC1TAB23 PO; +THERTAB19 PO
--- NOTE | 2020-02-06 11:39 | REPPI ---
REASON FOR EXAM: Preoperative evaluation. Patient has a history of renal calculi. COMPARISON: 06/25/2018 FINDINGS: The superior mediastinal structures are midline. The cardiac silhouette is unremarkable in size, shape, and position. The diaphragmatic surfaces of the lungs are regular, and the costophrenic angles are clear. The pulmonary santos are clear. The imaged osseous structures are intact. IMPRESSION: There is no acute cardiopulmonary disease. No significant change from the prior exam. Electronically Signed by Navi Arzola DO 02/06/2020 04:55 P
[2020-02-06 12:47] LABS: MEAN CORPUSCULAR HEMOGLOBIN 29.3 pg (27.0-33.0); MEAN CORPUSCULAR HGB CONC 32.4 g/dl (32.0-36.5); MEAN CORPUSCULAR VOLUME 90.5 fl (80.0-96.0); PLATELET COUNT, AUTOMATED 361 10^3/uL (150-450); RED BLOOD COUNT 4.09 10^6/uL (4.00-5.40); WHITE BLOOD COUNT 6.1 10^3/uL (4.0-10.0)
[2020-02-06 13:05] LABS: INR 0.99; PROTHROMBIN TIME 12.8 SECONDS (11.8-14.0)
[2020-02-06 13:06] LABS: PARTIAL THROMBOPLASTIN TIME 29.2 SECONDS (25.0-38.4)
[2020-02-06 13:42] LABS: BLOOD UREA NITROGEN 12 MG/DL (7-18); CALCIUM LEVEL 9.1 MG/DL (8.8-10.2); CARBON DIOXIDE LEVEL 29 MEQ/L (21-32); CHLORIDE LEVEL 106 MEQ/L (98-107); CREATININE FOR GFR 0.79 MG/DL (0.55-1.30); GLOMERULAR FILTRATION RATE > 60.0 (>45); GLUCOSE, FASTING 165 MG/DL (70-100); POTASSIUM SERUM 4.2 MEQ/L (3.5-5.1); SODIUM LEVEL 141 MEQ/L (136-145)
[2020-02-06 14:29] LABS: AMORPHOUS SEDIMENT SMALL (NEGATIVE); APPEARANCE, URINE HAZY (CLEAR); BACTERIA, URINE AUTO NEGATIVE (NEGATIVE); BILIRUBIN, URINE AUTO NEGATIVE (NEGATIVE); BLOOD, URINE BLOOD 2+ (NEGATIVE); COLOR, URINE YELLOW (YELLOW); GLUCOSE, URINE (UA) AUTO NEGATIVE (NEGATIVE); KETONE, URINE AUTO NEGATIVE (NEGATIVE); LEUKOCYTE ESTERASE, URINE AUTO 2+ (NEGATIVE); MUCUS, URINE SMALL (NEGATIVE); NITRITE, URINE AUTO NEGATIVE (NEGATIVE); PROTEIN, URINE AUTO NEGATIVE (NEGATIVE); RBC, URINE AUTO 8 /HPF (0-3); SPECIFIC GRAVITY URINE AUTO 1.011 (1.002-1.035); SQUAMOUS EPITHELIAL CELL UR AU 0 /HPF (0-6); WBC, URINE AUTO 13 /HPF (0-3)
== END ==
LOC: M PLALAB 08:50
PROVIDERS: ATTEND Nurse Practitioner Family
DX: Z01.818 Encounter for other preprocedural examination (principal); N20.0 Calculus of kidney

== ENCOUNTER → 2020-02-12 | Outpatient (CLI) | payer BC, OTHER | LOC: M LABSMTC 10:04 | PROVIDERS: ATTEND Anesthesiology | DX: Z01.818 Encounter for other preprocedural examination (principal); Z11.59 Encounter for screening for other viral diseases; Z20.828 Contact with and (suspected) exposure to other viral communicable diseases | CPT/HCPCS: C9803; U0003 ==

== ENCOUNTER 2020-02-17 09:42 | Day surgery (SDC) | payer BC, OTHER ==
[~2020-02-17] VITALS: Ht 162.6 cm; Wt 83.6 kg
[~2020-02-17 09:42] MED LIST changes: +ceFAZolin SOD 2 GM in IV 1 EA IV ONE
[2020-02-17] MEDS ORDERED: CONRAY-60 60% 50ML VIAL (Q9961) As Ordered ONE (10:59)
[2020-02-17] MEDS ORDERED: LIDOCAINE 2% 100MG/5ML SDV (FOR ANES.) As Ordered ONE (11:22)
[2020-02-17] MEDS ORDERED: dexameTHASONE 4 MG/ML 1ML VIAL (J1100 PER 1MG) As Ordered ONE (11:22)
[2020-02-17] MEDS ORDERED: fentaNYL 100 MCG/2 ML INJECTION (J3010) As Ordered ONE (11:22)
[2020-02-17] MEDS ORDERED: MIDAZOLAM INJ 2MG/2ML VIAL (J2250 PER 1MG) As Ordered ONE (11:22)
[2020-02-17] MEDS ORDERED: propofoL 200 MG/20 ML VIAL As Ordered ONE (11:22)
[2020-02-17] MEDS ORDERED: ONDANSETRON 4MG/2ML VIAL As Ordered ONE (11:25)
--- NOTE | 2020-02-17 12:13 | REP ---
Retrograde pyelogram: Two views. History: Cystoscopy, left. 17 seconds of fluoroscopy time is reported. Findings: A sequence of two last image hold fluoroscopically obtained spot radiographs of the abdomen document left ureteral cannulation, contrast injection, and double pigtail stent placement. Electronically Signed by James Agee MD 02/17/2020 12:04 P
[2020-02-17] MEDS ORDERED: fentaNYL 100 MCG/2 ML INJECTION (J3010) IV PRN (12:30)
[2020-02-17] MEDS ORDERED: PERCOCET 5MG/325MG TAB PO PRN (12:30)
[2020-02-17] MEDS ORDERED: ONDANSETRON 4MG/2ML VIAL IV PRN (12:30)
[2020-02-17] MEDS ORDERED: oxyCODONE 5MG TAB PO PRN (12:30)
[2020-02-17] MEDS ORDERED: LR 1,000 ML IV SCH (12:30)
[2020-02-17 12:54] VITALS: BP 129/68
[2020-03-16 14:44] LABS: CA Oxalate Dihy 20 % (.); Ca Ox Monohydrate 80 % (.); Size 4x3 mm (.)
--- NOTE | 2020-06-05 08:29 | RO ---
DATE OF OPERATION: 02/17/2020. PREOPERATIVE DIAGNOSIS: Left kidney stone. POSTOPERATIVE DIAGNOSIS: Left kidney stone. PROCEDURES: Cystoscopy, left ureteroscopy with laser lithotripsy and basket extraction of stone, left retrograde pyelogram with intraoperative interpretative images, left ureteral stent exchange. SURGEON: Finn Golden MD RUBBER GASKET INSPECTOR TRIMMER: None. ANESTHESIA: General. OPERATIVE INDICATIONS: This is a 64-year-old female who underwent left ureteral stent placement in December for an obstructing proximal left ureteral stone as well as signs of pyelonephritis. She was brought to the operating room on 02/17/2020 to remove her stone. DESCRIPTION OF PROCEDURE: The patient was brought to the operating room and general anesthesia was induced. Prophylactic antibiotics were infused. She was placed in the dorsal lithotomy position and prepped and draped in usual sterile fashion. A rigid cystoscope was inserted into the urethral meatus and advanced into the bladder. The previously placed left ureteral stent was seen. That stent was grasped and withdrawn until the distal end was protruding from the urethral meatus. A guidewire was then advanced up the stent into the left collecting system. The stent was removed, leaving the wire in place. At this point, a ureteral access sheath was advanced up the left collecting system. I went up the access sheath with a flexible ureteroscope and at the level of the ureteropelvic junction, the obstructing stone was seen. The stone was fragmented into smaller pieces using 272 micron laser fiber and then all the fragments were removed using a basket. Once that was done, the left kidney was examined and no additional stones were seen. A retrograde pyelogram was performed and was notable for mild to moderate left hydronephrosis with no extravasation. I then withdrew the ureteroscope along with the access sheath and no additional stones were seen. I then utilized the guidewire to advance a 7-Spanish x 22-32 cm JJ ureteral stent up the left collecting system. The wire was removed and there were adequate curls of the stent in the left renal pelvis and in the bladder. The bladder was emptied of all fluids. This marked the conclusion of the procedure. The patient was then taken out of the dorsal lithotomy position, awakened from anesthesia, and transported to the recovery room in stable condition. ESTIMATED BLOOD LOSS: 5 mL. COMPLICATIONS: None. SPECIMEN: Kidney stones. PLAN: The patient will follow-up for stent removal in the urology clinic. VALERIA
== END 2020-02-17 13:15 | disposition home or self-care (01) ==
LOC: M SDC 09:42
PROVIDERS: ATTEND Urology
DX: N20.0 Calculus of kidney (principal); I10 Essential (primary) hypertension; K21.9 Gastro-esophageal reflux disease without esophagitis; E11.9 Type 2 diabetes mellitus without complications; Z98.84 Bariatric surgery status; Z79.899 Other long term (current) drug therapy; Z79.84 Long term (current) use of oral hypoglycemic drugs
CPT/HCPCS: 52356; 74420; 82365; 88300; C1769; C1894; C2617; J0690; J1100; J2250; J2405; J3010; Q9961

== ENCOUNTER → 2021-03-23 | Outpatient (CLI) | payer MEDICARE, BC, OTHER ==
[~2021-03-23] MED LIST changes: +OMEP40CA4 PO; -OMEP40CA97 PO; -ceFAZolin SOD 2 GM in IV 1 EA IV ONE
--- NOTE | 2021-03-23 08:46 | REP ---
INDICATION: EPIGASTRIC PAIN COMPARISON: Abdominal CT dated 01/12/2020 TECHNIQUE: Real time louis scale ultrasound examination using curved array transducer. FINDINGS: Liver and pancreas are normal in contour, size, and echogenicity without focal hepatic or pancreatic lesions identified. Patient is status post cholecystectomy with mild compensatory biliary ductal dilatation. Common bile duct measures 11 mm diameter. Right kidney is normal in reniform shape without hydronephrosis and measures 11.2 x 5.8 x 5.5 cm. No ascites in the visualized right upper quadrant. IMPRESSION: Normal limited right upper quadrant ultrasound prior cholecystectomy. <Electronically signed by John Hernandez > 03/23/21 [id number]
== END ==
LOC: M RAD 07:55
PROVIDERS: ATTEND Family Medicine
DX: R10.816 Epigastric abdominal tenderness (principal)

== ENCOUNTER → 2021-05-26 | Outpatient (CLI) | payer MEDICARE, BC, OTHER ==
--- NOTE | 2021-05-27 08:28 | REP ---
INDICATION: SCR MAMMO. COMPARISON: Multiple prior screening examinations, the most recent, 03/20/2020 TECHNIQUE: Digital screening (2D) mammography was performed bilaterally in the CC and MLO projections. Additionally, breast tomosynthesis (3D mammography) was performed bilaterally in the CC and MLO projections. FINDINGS: By history, the patient has no complaints of a palpable breast abnormality or other significant breast complaints. The [place]para volumetric breast density pattern is b, there are scattered areas of fibroglandular density. There is a suspicious appearing lymph node in the right axilla. This may be unchanged but was incompletely imaged on the prior exam. In the middle 3rd of the right breast, above and lateral to the nipple in the upper outer quadrant there is an area of architectural distortion. The left breast is unchanged.. IMPRESSION: BIRADS/ACR : Category 0: Incomplete, need additional imaging evaluation. This patient's Tyrer-Cuzick lifetime breast cancer risk assessment score is 10.9%. This mammogram was interpreted with the aid of an FDA-approved computer-aided detection system. The patient states she had a clinical breast exam in April 2021. The patient letter being requested is M0. RECOMMENDATION: Focal compression 3D of the right breast in the CC and MLO orientations. Targeted ultrasound of the upper-outer quadrant of the right breast and the right axilla. <Electronically signed by Flo Mccarthy > 05/27/21 [id number]
== END ==
LOC: M WHC 13:39
PROVIDERS: ATTEND Obstetrics & Gynecology
DX: Z12.31 Encounter for screening mammogram for malignant neoplasm of breast (principal); N63.11 Unspecified lump in the right breast, upper outer quadrant
CPT/HCPCS: 77063; 77067; G0463

== ENCOUNTER → 2021-06-22 | Outpatient (CLI) | payer MEDICARE, BC, OTHER ==
--- NOTE | 2021-06-22 10:00 | REP ---
INDICATION: RIGHT BREAST ADD VIEWS. COMPARISON: 05/26/2021, 03/20/2020, 03/07/2019, 01/02/2018. TECHNIQUE: Spot-compression tomographic sequences are obtained of the upper outer right breast. FINDINGS: The possible architectural distortion in the upper-outer quadrant of the right breast compresses out to an unchanged appearance compared to prior studies dating back to 01/02/2018. There is a stable sebaceous cyst in the right axilla, unchanged since 2018. IMPRESSION: BIRADS/ACR category 2, benign. No persistent architectural distortion in the right breast. Stable sebaceous cyst in the right axilla. This mammogram was interpreted with the aid of an FDA-approved computer-aided detection system. The patient letter being requested is M 1. RECOMMENDATION: Repeat screening mammography recommended 1 year (for women over 40). <Electronically signed by Bro Melo > 06/22/21 [id number]
== END ==
LOC: M WHC 08:50
PROVIDERS: ATTEND Obstetrics & Gynecology
DX: N60.01 Solitary cyst of right breast (principal); Z12.31 Encounter for screening mammogram for malignant neoplasm of breast
CPT/HCPCS: 77065; G0279

== ENCOUNTER 2021-07-16 23:30 | Emergency (ER) | payer MEDICARE, BC, OTHER ==
[~2021-07-16 23:30] MED LIST changes: +ONDA-84; -ONDA8TAB10
[2021-07-17] MEDS ORDERED: NS 1,000 ML IV ONE (00:35)
[2021-07-17 00:58] LABS: BASO % 0.2 % (0.0-1.0); HEMATOCRIT 33.7 % (36.0-47.0); HEMOGLOBIN 11.1 g/dl (12.0-15.5); LYMPH # 0.8 10^3/uL (1.5-5.0); LYMPH % 13.2 % (24.0-44.0); MEAN CORPUSCULAR HEMOGLOBIN 28.8 pg (27.0-33.0); MEAN CORPUSCULAR HGB CONC 32.9 g/dl (32.0-36.5); MEAN CORPUSCULAR VOLUME 87.5 fl (80.0-96.0); MONO # 0.4 10^3/uL (0.0-0.8); PLATELET COUNT, AUTOMATED 221 10^3/uL (150-450); RED BLOOD COUNT 3.85 10^6/uL (4.00-5.40); WHITE BLOOD COUNT 6.2 10^3/uL (4.0-10.0)
[2021-07-17 01:20] LABS: BLOOD UREA NITROGEN 11 MG/DL (7-18); CARBON DIOXIDE LEVEL 27 MEQ/L (21-32); CHLORIDE LEVEL 103 MEQ/L (98-107); CREATININE FOR GFR 0.68 MG/DL (0.55-1.30); GLOMERULAR FILTRATION RATE > 60.0 (>45); GLUCOSE, FASTING 183 MG/DL (70-100); POTASSIUM SERUM 3.8 MEQ/L (3.5-5.1); SODIUM LEVEL 139 MEQ/L (136-145)
[2021-07-17] MEDS ORDERED: diphenhydrAMINE 25MG CAP PO ONE (02:30)
[2021-07-17 03:15] VITALS: BP 145/78
[2021-07-17 03:22] VITALS: O2SAT 97
[2021-07-17] MEDS ORDERED: ROSU10TA6 PO (03:29)
[2021-07-17] MEDS ORDERED: METF10004 PO (03:29)
[2021-07-17] MEDS ORDERED: GLIP5TAB20 PO (03:29)
== END 2021-07-17 03:54 | disposition home or self-care (01) ==
LOC: M ED 23:30
DX: I95.1 Orthostatic hypotension (principal); E11.9 Type 2 diabetes mellitus without complications; R94.31 Abnormal electrocardiogram [ECG] [EKG]; Z79.84 Long term (current) use of oral hypoglycemic drugs; Z88.6 Allergy status to analgesic agent; Z98.84 Bariatric surgery status; Z82.49 Family history of ischemic heart disease and other diseases of the circulatory system; Z79.899 Other long term (current) drug therapy

== ENCOUNTER 2022-06-29 12:38 | Emergency (ER) | payer MEDICARE, BC, OTHER ==
[~2022-06-29] VITALS: Ht 162.6 cm; Wt 67.6 kg
[~2022-06-29 12:38] MED LIST changes: -D31000TA2 PO; +GLIP5TAB20 PO; +METF10004 PO; +ROSU10TA6 PO; +VITA100093 PO
[2022-06-29] MEDS ORDERED: OMEP40CA5 (13:03)
[2022-06-29] MEDS ORDERED: SEMA1PEN2 (13:03)
[2022-06-29] MEDS ORDERED: AMOX500C (13:03)
[2022-06-29] MEDS ORDERED: KETOROLAC TROMETHAMINE 10 MG TAB PO ONE (16:35)
[2022-06-29 17:20] LABS: BASO % 0.5 % (0.0-1.0); EOS # 0.1 10^3/uL (0.0-0.5); EOS % 0.9 % (0.0-3.0); HEMATOCRIT 37.9 % (36.0-47.0); HEMOGLOBIN 12.4 g/dl (12.0-15.5); LYMPH # 1.8 10^3/uL (1.5-5.0); LYMPH % 22.2 % (24.0-44.0); MEAN CORPUSCULAR HEMOGLOBIN 28.7 pg (27.0-33.0); MEAN CORPUSCULAR HGB CONC 32.7 g/dl (32.0-36.5); MEAN CORPUSCULAR VOLUME 87.7 fl (80.0-96.0); MONO # 0.6 10^3/uL (0.0-0.8); MONO % 7.9 % (2.0-8.0); NEUTROPHILS # 5.5 10^3/uL (1.5-8.5); NEUTROPHILS % 68.3 % (36.0-66.0); PLATELET COUNT, AUTOMATED 341 10^3/uL (150-450); RED BLOOD COUNT 4.32 10^6/uL (4.00-5.40)
[2022-06-29 17:55] LABS: BLOOD UREA NITROGEN 10 MG/DL (9-23); CALCIUM LEVEL 9.3 MG/DL (8.3-10.6); CARBON DIOXIDE LEVEL 27 MMOL/L (20-31); CHLORIDE LEVEL 104 MMOL/L (98-107); CREATININE FOR GFR 0.64 MG/DL (0.55-1.30); GLOMERULAR FILTRATION RATE > 60.0 (>45); GLUCOSE, FASTING 82 MG/DL (74-106); POTASSIUM SERUM 3.7 MMOL/L (3.5-5.1); SODIUM LEVEL 141 MMOL/L (136-145)
[2022-06-29] MEDS ORDERED: FLOM0.4C39 PO (18:09)
[2022-06-29] MEDS ORDERED: KETO10TAB PO (18:09)
[2022-06-29 18:20] VITALS: BP 146/81
== END 2022-06-29 18:28 | disposition home or self-care (01) ==
LOC: M ED 12:38
DX: N20.1 Calculus of ureter (principal); I10 Essential (primary) hypertension; E11.9 Type 2 diabetes mellitus without complications; Z87.442 Personal history of urinary calculi; Z88.6 Allergy status to analgesic agent; Z79.899 Other long term (current) drug therapy; Z79.83 Long term (current) use of bisphosphonates; Z79.84 Long term (current) use of oral hypoglycemic drugs

== ENCOUNTER → 2022-07-22 | Outpatient (CLI) | payer MEDICARE, BC, OTHER ==
[~2022-07-22] MED LIST changes: +AMOX500C; +FLOM0.4C39 PO; +ISOVUE-370 76% 100ML VIAL As Ordered ONE; +KETO10TAB PO; +OMEP40CA5; +SEMA1PEN2
== END ==
LOC: M RAD 08:50
PROVIDERS: ATTEND Nurse Practitioner Women's Health
DX: N13.0 Hydronephrosis with ureteropelvic junction obstruction (principal)
CPT/HCPCS: 74178; Q9967

== ENCOUNTER → 2022-09-13 | Outpatient (CLI) | payer MEDICARE, BC, OTHER ==
[~2022-09-13] MED LIST changes: -ISOVUE-370 76% 100ML VIAL As Ordered ONE
== END ==
LOC: M WHC 10:59
PROVIDERS: ATTEND Family Medicine
DX: Z12.31 Encounter for screening mammogram for malignant neoplasm of breast (principal)

== ENCOUNTER → 2022-10-14 | Outpatient (CLI) | payer MEDICARE, BC, OTHER ==
[~2022-10-14] MED LIST changes: -OMEP40CA5; +OMEP40CA5 PO; -SEMA1PEN2; +SEMA1PEN2 SC
== END ==
LOC: M LABSMTC 10:03
PROVIDERS: ATTEND Anesthesiology
DX: Z01.812 Encounter for preprocedural laboratory examination (principal)

== ENCOUNTER 2022-10-19 08:04 | Day surgery (SDC) | payer MEDICARE, BC, OTHER ==
[~2022-10-19] VITALS: Ht 165.1 cm; Wt 83.0 kg
[~2022-10-19 08:04] MED LIST changes: +NS 1,000 ML IV ONE
[2022-10-19] MEDS ORDERED: LIDOCAINE 2% 100MG/5ML SDV (FOR ANES.) As Ordered ONE (08:50)
[2022-10-19] MEDS ORDERED: fentaNYL 100 MCG/2 ML INJECTION As Ordered ONE (08:50)
[2022-10-19] MEDS ORDERED: propofoL 200 MG/20 ML VIAL As Ordered ONE (08:50)
[2022-10-19 10:12] VITALS: BP 130/73
== END 2022-10-19 10:20 | disposition home or self-care (01) ==
LOC: M OPP 08:04
PROVIDERS: ATTEND Internal Medicine Gastroenterology
DX: K62.89 Other specified diseases of anus and rectum (principal); K57.30 Diverticulosis of large intestine without perforation or abscess without bleeding; K64.8 Other hemorrhoids; K28.9 Gastrojejunal ulcer, unspecified as acute or chronic, without hemorrhage or perforation; Z98.0 Intestinal bypass and anastomosis status; E11.9 Type 2 diabetes mellitus without complications; E78.00 Pure hypercholesterolemia, unspecified; Z79.02 Long term (current) use of antithrombotics/antiplatelets; Z79.4 Long term (current) use of insulin; Z88.6 Allergy status to analgesic agent; Z88.8 Allergy status to other drugs, medicaments and biological substances; Z87.11 Personal history of peptic ulcer disease; Z98.84 Bariatric surgery status; Z80.3 Family history of malignant neoplasm of breast; Z80.6 Family history of leukemia
CPT/HCPCS: 43235; 45378; J3010

== ENCOUNTER → 2022-10-20 | Outpatient (CLI) | payer MEDICARE, BC, OTHER ==
[~2022-10-20] MED LIST changes: -NS 1,000 ML IV ONE
== END ==
LOC: M RAD 16:11
PROVIDERS: ATTEND Surgery
DX: N63.31 Unspecified lump in axillary tail of the right breast (principal)

== ENCOUNTER 2022-11-13 18:53 | Emergency (ER) | payer MEDICARE, BC, OTHER ==
[~2022-11-13] VITALS: Ht 165.1 cm; Wt 82.3 kg
[2022-11-13 22:04] LABS: BASO # 0.1 10^3/uL (0.0-0.2); BASO % 0.6 % (0.0-1.0); EOS # 0.1 10^3/uL (0.0-0.5); EOS % 1.2 % (0.0-3.0); LYMPH # 1.8 10^3/uL (1.5-5.0); LYMPH % 21.7 % (24.0-44.0); MEAN CORPUSCULAR HEMOGLOBIN 29.3 pg (27.0-33.0); MEAN CORPUSCULAR HGB CONC 33.3 g/dl (32.0-36.5); MEAN CORPUSCULAR VOLUME 87.8 fl (80.0-96.0); MONO # 0.8 10^3/uL (0.0-0.8); MONO % 9.3 % (2.0-8.0); NEUTROPHILS # 5.5 10^3/uL (1.5-8.5); PLATELET COUNT, AUTOMATED 346 10^3/uL (150-450); WHITE BLOOD COUNT 8.2 10^3/uL (4.0-10.0)
[2022-11-13 22:33] LABS: ALBUMIN 3.8 G/DL (3.2-5.2); ALKALINE PHOSPHATASE 115 U/L (46-116); ALT/SGPT 54 U/L (7.0-40); AST/SGOT 30 U/L (<34); BILIRUBIN,TOTAL 0.4 MG/DL (0.3-1.2); BLOOD UREA NITROGEN 12 MG/DL (9-23); CALCIUM LEVEL 8.8 MG/DL (8.3-10.6); CARBON DIOXIDE LEVEL 23 MMOL/L (20-31); CHLORIDE LEVEL 104 MMOL/L (98-107); GLOMERULAR FILTRATION RATE > 60.0 (>45); GLUCOSE, FASTING 147 MG/DL (74-106); POTASSIUM SERUM 4.2 MMOL/L (3.5-5.1); SODIUM LEVEL 136 MMOL/L (136-145); TOTAL PROTEIN 7.5 G/DL (5.7-8.2)
[2022-11-13] MEDS ORDERED: ISOVUE-370 76% 100ML VIAL As Ordered ONE (22:35)
[2022-11-14 00:41] VITALS: BP 120/78
[2022-11-16] MEDS ORDERED: ONDA4TAB6 PO (13:08)
[2022-11-16] MEDS ORDERED: OXYC1TAB23 PO (13:08)
[2022-11-16] MEDS ORDERED: BACTDSTA PO (13:11)
== END 2022-11-14 00:43 | disposition home or self-care (01) ==
LOC: M ED 18:53
DX: N20.0 Calculus of kidney (principal); R31.9 Hematuria, unspecified; E11.9 Type 2 diabetes mellitus without complications; I10 Essential (primary) hypertension; Z79.4 Long term (current) use of insulin; Z79.84 Long term (current) use of oral hypoglycemic drugs; Z87.442 Personal history of urinary calculi; Z88.6 Allergy status to analgesic agent; Z79.83 Long term (current) use of bisphosphonates; Z79.810 Long term (current) use of selective estrogen receptor modulators (SERMs); Z79.899 Other long term (current) drug therapy
CPT/HCPCS: 36415; 74177; 80053; 81001; 85025; 99284; Q9967

== ENCOUNTER → 2022-11-16 | Outpatient (CLI) | payer MEDICARE, BC, OTHER ==
[~2022-11-16] MED LIST changes: +BACTDSTA PO; +ONDA4TAB6 PO
== END ==
LOC: M RAD 10:20
PROVIDERS: ATTEND Urology
DX: Z01.818 Encounter for other preprocedural examination (principal); N20.0 Calculus of kidney

== ENCOUNTER 2022-11-17 06:41 | Day surgery (SDC) | payer MEDICARE, BC, OTHER ==
[~2022-11-17] VITALS: Ht 165.1 cm; Wt 81.2 kg
[~2022-11-17 06:41] MED LIST changes: +LevoFLOXacin IV 500 MG in IV 1 EA IV ONE
[2022-11-17] MEDS ORDERED: propofoL 200 MG/20 ML VIAL As Ordered ONE (07:20)
[2022-11-17] MEDS ORDERED: MIDAZOLAM INJ 2MG/2ML VIAL As Ordered ONE (07:20)
[2022-11-17] MEDS ORDERED: fentaNYL 100 MCG/2 ML INJECTION As Ordered ONE (07:20)
[2022-11-17] MEDS ORDERED: LIDOCAINE 2% 100MG/5ML SDV (FOR ANES.) As Ordered ONE (07:20)
[2022-11-17] MEDS ORDERED: FLOM0.4C39 PO (09:01)
[2022-11-17] MEDS ORDERED: LIDOCAINE 1% SDV 5ML VIAL SC PRN (09:30)
[2022-11-17] MEDS ORDERED: LR 1,000 ML IV SCH (09:30)
[2022-11-17 09:56] VITALS: BP 145/80
== END 2022-11-17 10:01 | disposition home or self-care (01) ==
LOC: M SDC 06:41
PROVIDERS: ATTEND Urology
DX: N20.0 Calculus of kidney (principal); I10 Essential (primary) hypertension; E11.9 Type 2 diabetes mellitus without complications; K21.9 Gastro-esophageal reflux disease without esophagitis; Z88.8 Allergy status to other drugs, medicaments and biological substances; Z98.84 Bariatric surgery status; Z79.899 Other long term (current) drug therapy
CPT/HCPCS: 50590; 74018; J1956; J2250; J3010

== ENCOUNTER → 2022-12-19 | Outpatient (CLI) | payer MEDICARE, BC, OTHER ==
[~2022-12-19] MED LIST changes: -LevoFLOXacin IV 500 MG in IV 1 EA IV ONE
== END ==
LOC: M RAD 08:37
PROVIDERS: ATTEND Urology
DX: N20.0 Calculus of kidney (principal)

== ENCOUNTER → 2023-06-19 | Outpatient (CLI) | payer MEDICARE, BC, OTHER | LOC: M RAD 10:31 | PROVIDERS: ATTEND Urology | DX: N20.0 Calculus of kidney (principal) ==

== ENCOUNTER → 2023-06-27 | Outpatient (CLI) | payer MEDICARE, BC, OTHER | LOC: M RAD 11:34 | PROVIDERS: ATTEND Family Medicine | DX: M54.2 Cervicalgia (principal) ==

== ENCOUNTER 2024-06-17 10:16 | Emergency (ER) | payer MEDICARE, BC ==
[~2024-06-17] VITALS: Ht 165.1 cm; Wt 80.0 kg
[~2024-06-17 10:16] MED LIST changes: +ONDA-282 PO; -ONDA4TAB6 PO; -ROSU10TA6 PO; +ROSU10TA61 PO
[2024-06-17 14:17] LABS: BASO % 0.4 % (0.0-1.0); EOS # 0.1 10^3/uL (0.0-0.5); EOS % 0.9 % (0.0-3.0); HEMATOCRIT 38.9 % (36.0-47.0); HEMOGLOBIN 12.8 g/dl (12.0-15.5); LYMPH # 1.2 10^3/uL (1.5-5.0); LYMPH % 18.2 % (24.0-44.0); MEAN CORPUSCULAR HEMOGLOBIN 28.8 pg (27.0-33.0); MEAN CORPUSCULAR HGB CONC 32.9 g/dl (32.0-36.5); MEAN CORPUSCULAR VOLUME 87.6 fl (80.0-96.0); MONO # 0.5 10^3/uL (0.0-0.8); MONO % 7.4 % (2.0-8.0); NEUTROPHILS # 4.9 10^3/uL (1.5-8.5); NEUTROPHILS % 72.8 % (36.0-66.0); PLATELET COUNT, AUTOMATED 358 10^3/uL (150-450); RED BLOOD COUNT 4.44 10^6/uL (4.00-5.40); WHITE BLOOD COUNT 6.8 10^3/uL (4.0-10.0)
[2024-06-17 14:26] LABS: LIPASE 39 U/L (12-53)
[2024-06-17 14:28] LABS: ALBUMIN 3.7 G/DL (3.2-5.2); ALKALINE PHOSPHATASE 104 U/L (35-104); ALT/SGPT 26 U/L (7.0-40); AST/SGOT 18 U/L (<34); BILIRUBIN,DIRECT 0.3 MG/DL (<0.4); BILIRUBIN,TOTAL 0.5 MG/DL (0.3-1.2); BLOOD UREA NITROGEN 11 MG/DL (9-23); CALCIUM LEVEL 9.8 MG/DL (8.3-10.6); CARBON DIOXIDE LEVEL 26 MMOL/L (20-31); CHLORIDE LEVEL 107 MMOL/L (98-107); CK-MB VALUE MASS < 1.0 NG/ML (<3.6); CPK CREATINE PHOSPHOKINASE 88 U/L (34-145); CREATININE FOR GFR 0.64 MG/DL (0.55-1.30); GLOMERULAR FILTRATION RATE > 60.0 (>45); GLUCOSE, FASTING 111 MG/DL (74-106); MB/CK RELATIVE INDEX 1.13 (< OR =4); SODIUM LEVEL 141 MMOL/L (136-145); TOTAL PROTEIN 7.8 G/DL (5.7-8.2)
[2024-06-17] MEDS ORDERED: ISOVUE-370 76% 100ML VIAL As Ordered ONE (15:21)
[2024-06-17 17:04] VITALS: BP 179/86; TEMP 97.6; O2SAT 99
== END 2024-06-17 17:23 | disposition home or self-care (01) ==
LOC: M ED 10:16
DX: R91.1 Solitary pulmonary nodule (principal); R05.9 Cough, unspecified; I49.3 Ventricular premature depolarization; K21.9 Gastro-esophageal reflux disease without esophagitis; E11.9 Type 2 diabetes mellitus without complications; Z88.6 Allergy status to analgesic agent; Z79.1 Long term (current) use of non-steroidal anti-inflammatories (NSAID); Z79.83 Long term (current) use of bisphosphonates; Z79.899 Other long term (current) drug therapy
CPT/HCPCS: 36415; 71275; 74021; 80048; 80076; 82550; 82553; 83690; 84484; 85025; 93005; 99284; Q9967

== ENCOUNTER → 2024-10-21 | Outpatient (CLI) | payer MEDICARE, BC ==
[~2024-10-21] MED LIST changes: +GLIP-318 PO; -GLIP5TAB20 PO
== END ==
LOC: M WHC 09:50
PROVIDERS: ATTEND Family Medicine
DX: Z12.31 Encounter for screening mammogram for malignant neoplasm of breast (principal); R92.313 Mammographic fatty tissue density, bilateral breasts

== ENCOUNTER → 2025-07-14 | Outpatient (CLI) | payer MEDICARE, BC ==
[~2025-07-14] MED LIST changes: -BACTDSTA PO; +E-Z-GAS II EFFERVESCENT PACKET (SODIUM BICARB./CITRIC ACID/SIMETHICONE) As Ordered ONE; +E-Z-HD 98% w/w 340 GM SUSP BTL As Ordered ONE; +E-Z-PAQUE 96% w/w SUSP 176 GM BTL As Ordered ONE; -FLOM0.4C39 PO; -ROSU10TA61 PO; +ROSU10TA90 PO; +SULF-8 PO; +TAMS-18 PO; -VITA500T17 PO; +VITA500T8 PO
== END ==
LOC: M RAD 07-11 07:38
PROVIDERS: ATTEND Surgery
DX: Z98.84 Bariatric surgery status (principal); K44.9 Diaphragmatic hernia without obstruction or gangrene; K21.9 Gastro-esophageal reflux disease without esophagitis